=== PATIENT | female | born 1950 | race Caucasian/White ===

== ENCOUNTER 2016-08-11 12:27 | Emergency (ER) | payer OTHER ==
[~2016-08-11] VITALS: Ht 170.2 cm; Wt 142.4 kg
[2016-08-11 12:43] VITALS: BP 133/83; PULSE 60; RESP 16; TEMP 97.7; O2SAT 97
[2016-08-11] MEDS ORDERED: PROZ20CA11 PO (13:06)
[2016-08-11] MEDS ORDERED: ALPR.5 PO (13:06)
--- NOTE | 2016-08-11 13:12 | PD ---
HPI Chief Complaint: Anxiety Time Seen by Provider: 13:02 Travel History International Travel<30 days: No Contact w/Intl Traveler<30days: No Traveled to known affect area: No History of Present Illness HPI This is a 65-year-old woman who presents to the emergency department complaining of increased anxiety symptoms with shortness of breath and nausea and queasiness, occurring in the mornings for the past several mornings. Today she states symptoms are much worse since she's had him in the past. She is not sure just her anxiety or not. She was taking Prozac intermittently in the past , but it stopped it because of traveling. She is been here for about a month and is planning on remaining for another month. She otherwise had been feeling generally well. Family was in town recently and they were doing well. She isn' t feeling she is under more stress than she normally is. Only other medical history is parathyroid disease, status post a parathyroidectomy. She is worried that her levels on her parathyroid maybe off. She otherwise had been feeling generally well and healthy. History Past Medical History Narrative Medical Anxiety Asthma Parathyroid disease Borderline diabetes Social History Tobacco Use: No Allergies-Medications (Allergen,Severity, Reaction): Coded Allergies: Penicillin (Verified Allergy, Intermediate, RASH, 08/11/16) Reported Meds & Prescriptions Reported Meds & Active Scripts Active Reported Prozac (Fluoxetine HCl) 20 Mg Cap 20 Mg PO DAILY Xanax (Alprazolam) 0.5 Mg Tab 0.5 Mg PO Q6H PRN Review of Systems Except as stated in HPI: all other systems reviewed are Neg Physical Exam Narrative GENERAL: Anxious appearing 65-year-old woman, nontoxic. SKIN: Warm and dry. HEAD: Atraumatic. Normocephalic. EYES: Pupils equal and round. No scleral icterus. No injection or drainage. ENT: No nasal bleeding or discharge. Mucous membranes pink and moist. NECK: Trachea midline. No JVD. CARDIOVASCULAR: Regular rate and rhythm. No murmur appreciated. RESPIRATORY: No accessory muscle use. Clear to auscultation. Breath sounds equal bilaterally. No wheezing. GASTROINTESTINAL: Abdomen soft, non-tender, nondistended. Hepatic and splenic margins not palpable. MUSCULOSKELETAL: No obvious deformities. Legs are obese but there is no significant edema. NEUROLOGICAL: Awake and alert. No obvious cranial nerve deficits. Motor grossly within normal limits. Normal speech. PSYCHIATRIC: Anxious appearing with rapid pressured speech. Data Data Last Documented VS Vital Signs Date Time Temp Pulse Resp B/P Pulse Ox O2 Delivery O2 Flow Rate FiO2 08/11/16 12:43 97.7 60 16 133/83 97 Orders Complete Blood Count With Diff (08/11/16 13:02) Comprehensive Metabolic Panel (08/11/16 13:02) Troponin I (08/11/16 13:02) B-Type Natriuretic Peptide (08/11/16 13:02) D-Dimer (08/11/16 13:02) Chest, Ap & Lat (08/11/16 ) Parathyroid Hormone Intact (08/11/16 13:02) Electrocardiogram (08/11/16 ) Iv Access Insert/Monitor (08/11/16 13:02) Thyroid Stimulating Hormone (08/11/16 13:02) Labs Laboratory Tests Test 08/11/16 13:25 White Blood Count 9.7 TH/MM3 Red Blood Count 5.48 MIL/MM3 Hemoglobin 14.6 GM/DL Hematocrit 43.6 % Mean Corpuscular Volume 79.6 FL Mean Corpuscular Hemoglobin 26.6 PG Mean Corpuscular Hemoglobin 33.5 % Concent Red Cell Distribution Width 13.7 % Platelet Count 297 TH/MM3 Mean Platelet Volume 7.8 FL Neutrophils (%) (Auto) 76.1 % Lymphocytes (%) (Auto) 16.6 % Monocytes (%) (Auto) 5.0 % Eosinophils (%) (Auto) 1.2 % Basophils (%) (Auto) 1.1 % Neutrophils # (Auto) 7.4 TH/MM3 Lymphocytes # (Auto) 1.6 TH/MM3 Monocytes # (Auto) 0.5 TH/MM3 Eosinophils # (Auto) 0.1 TH/MM3 Basophils # (Auto) 0.1 TH/MM3 CBC Comment DIFF FINAL Differential Comment D-Dimer Quantitative (PE/DVT) LESS THAN 0.19 MG/L FEU Sodium Level 140 MEQ/L Potassium Level 4.0 MEQ/L Chloride Level 104 MEQ/L Carbon Dioxide Level 25.8 MEQ/L Anion Gap 10 MEQ/L Blood Urea Nitrogen 16 MG/DL Creatinine 0.68 MG/DL Estimat Glomerular Filtration 87 ML/MIN Rate Random Glucose 114 MG/DL Calcium Level 8.9 MG/DL Total Bilirubin 0.5 MG/DL Aspartate Amino Transf 14 U/L (AST/SGOT) Alanine Aminotransferase 26 U/L (ALT/SGPT) Alkaline Phosphatase 85 U/L Troponin I LESS THAN 0.02 NG/ML Total Protein 7.8 GM/DL Albumin 3.9 GM/DL Thyroid Stimulating Hormone 1.450 uIU/ML 3rd Gen [facility] Medical Decision Making Medical Screen Exam Complete: Yes Emergency Medical Condition: Yes Interpretation(s) LABS: CBC unremarkable. CMP unremarkable Troponin negative TSH normal BNP is pending PTH is pending D-dimer normal My review of EKG: Sinus bradycardia rate of 54, normal axis, PA interval prolonged at 224 suggestive of first-degree AV block, no ischemia. Chest x-ray: No acute cardiopulmonary findings. Differential Diagnosis Anxiety, CHF, CAD, PE, other Narrative Course Medical decision making INITIAL: This is a 64 year-old woman presents to the emergency department complaining of worsening shortness of breath chest tightness and anxiety symptoms for the past several days. I think this is likely anxiety. The fact that it's worse in the morning waking her up could suggest a PND or CHF type picture, I think this is unlikely. I don't think she has a PE. Similarly doesn 't seem like CHF. She would really like her PTH level checked. I don't think this will come back today. Does not mechanism in place to ensure follow-up of the level. She would like to have the level checked on him follow-up with her doctor. I told her we would be able to do this if she assumed responsibility for retrieving the lab tests from the patient and portal or from medical records and getting into her primary physician. We do not have a mechanism in place to ensure that this happens. FINAL: Patient agrees to follow-up on her own parathyroid hormone level. We sent this is a favor for her to have her follow-up with her regular doctor. Otherwise workups unremarkable. Likely anxiety. Recommended outpatient follow- up. Diagnosis Primary Impression: Anxiety Additional Instructions: Follow-up with your primary physician as discussed. Continue Prozac as prescribed. Return to the emergency department for any new or worsening symptoms. Follow-up on a parathyroid level with your primary physician. Med/Other Pt SpecificInfo: No Change to Meds Disposition: 01 DISCHARGE HOME Condition: Stable Moshe Salmeron MD Aug 11, 2016 13:12
--- NOTE | 2016-08-11 13:27 | RADHPO ---
EXAM DATE/TIME: 08/11/2016 13:08 [facility] COMPARISON: No previous studies available for comparison. INDICATIONS : Short of breath and axiety MEDICAL HISTORY : Asthma SURGICAL HISTORY : None. ENCOUNTER: Initial ACUITY: 1 day PAIN SCORE: 5/10 LOCATION: Bilateral chest FINDINGS: AP and lateral views of the chest demonstrate the lungs to be symmetrically aerated without evidence of mass, infiltrate or effusion. The cardiomediastinal contours are unremarkable. Osseous structure s are intact. CONCLUSION: 1. Chronic changes. No acute cardiopulmonary findings. Herminio Dubon MD on August 11, 2016 at 13:25 Board Certified Radiologist. This report was verified electronically.
[2016-08-11 13:40] LABS: AUTOMATED NEUTROPHIL # 7.4 TH/MM3 (1.8-7.7); BASOPHIL # 0.1 TH/MM3 (0-0.2); BASOPHIL % 1.1 % (0.0-2.0); EOSINOPHIL # 0.1 TH/MM3 (0-0.4); EOSINOPHIL % 1.2 % (0.0-4.0); HEMATOCRIT 43.6 % (35.0-46.0); HEMO FLAGS DIFF FINAL; LYMPH % 16.6 % (9.0-44.0); LYMPHOCYTE # 1.6 TH/MM3 (1.0-4.8); MEAN CELL VOLUME 79.6 FL (80.0-100.0); MEAN CORPUSCULAR HEMOGLOBIN 26.6 PG (27.0-34.0); MEAN CORPUSCULAR HGB CONC 33.5 % (32.0-36.0); NEUT % 76.1 % (16.0-70.0); PLATELET COUNT 297 TH/MM3 (150-450); RED BLOOD COUNT 5.48 MIL/MM3 (4.00-5.30); RED CELL DISTRIBUTION WIDTH 13.7 % (11.6-17.2); WHITE BLOOD COUNT 9.7 TH/MM3 (4.0-11.0)
[2016-08-11 13:47] LABS: CHLORIDE 104 MEQ/L (98-107); SODIUM (NA) 140 MEQ/L (136-145)
[2016-08-11 13:51] LABS: ANION GAP 10 MEQ/L (5-15); BICARBONATE 25.8 MEQ/L (21.0-32.0); BLOOD UREA NITROGEN 16 MG/DL (7-18)
[2016-08-11 13:54] LABS: ALT (GPT) 26 U/L (10-53); AST (GOT) 14 U/L (15-37); GLOMERULAR FILTRATION RATE 87 ML/MIN (>89)
[2016-08-11 13:56] LABS: TOTAL BILIRUBIN ADULT 0.5 MG/DL (0.2-1.0)
[2016-08-11 13:57] LABS: ALKALINE PHOSPHATASE 85 U/L (45-117)
[2016-08-11 14:20] VITALS: BP 120/72; PULSE 68; RESP 18; O2SAT 96
--- NOTE | 2016-08-11 16:54 | EKG ---
Date Performed: 08/11/2016 Time Performed: 13:10:14 PTAGE: 65 years EKG: BASELINE ARTIFACT PRESENT. Sinus bradycardia with 1st degree A-V block Abnormal ECG NO PREVIOUS TRACING DOCTOR: Efren Hou Interpretating Date/Time 08/11/2016 16:53:06
== END 2016-08-11 14:40 | disposition home or self-care (01) ==
LOC: PHED 12:27
DX: F41.9 Anxiety disorder, unspecified (principal); R00.1 Bradycardia, unspecified; I44.0 Atrioventricular block, first degree; R94.31 Abnormal electrocardiogram [ECG] [EKG]
CPT/HCPCS: 71020; 80053; 83880; 83970; 84443; 84484; 85025; 85379; 93005